=== PATIENT | female | born 1990 | race Caucasian/White ===

== ENCOUNTER 2016-08-21 16:14 | Inpatient (IN) | payer OTHER ==
[~2016-08-21] VITALS: Ht 160 cm; Wt 68.0 kg
[2016-08-21 17:57] LABS: AMPHETAMINE QUAL UR NONE DETECTED (NEG <=1000)
[2016-08-21 19:50] LABS: BASOPHIL % 0.5 % (0-2); PLATELET COUNT 316 x10^3mcL (130-400); RED CELL DISTRIBUTION WIDTH 14.1 % (11.5-14.5)
[2016-08-21 19:55] LABS: CALCIUM 8.2 mg/dL (8.5-10.1); CARBON DIOXIDE 27.6 mmol/L (21-32); CHLORIDE SERUM 106 mmol/L (98-107); CREATININE SERUM 0.7 mg/dL (0.6-1.0); GFR1 > 60 mL/min; GLUCOSE SERUM 93 mg/dL (74-106); POTASSIUM SERUM 3.8 mmol/L (3.5-5.1); SODIUM SERUM 140 mmol/L (136-145)
[2016-08-21 19:59] LABS: ALKALINE PHOSPHATASE 45 U/L (46-116); ALT/SGPT 9 U/L (14-59); AST/SGOT 19 U/L (15-37); BILIRUBIN TOTAL 0.19 mg/dL (0.20-1.00)
[2016-08-21 20:00] LABS: ALBUMIN 3.2 g/dL (3.4-5.0); TOTAL PROTEIN, SERUM 6.1 g/dL (6.4-8.2)
[2016-08-22 14:21] LABS: BASOPHIL % 0.6 % (0-2); PLATELET COUNT 288 x10^3mcL (130-400); RED CELL DISTRIBUTION WIDTH 14.1 % (11.5-14.5)
[2016-08-22 14:46] LABS: CHOLESTEROL/HDL RATIO 3.5
[2016-08-22 14:52] LABS: T3 TOTAL 0.66 ng/mL
[2016-08-22 14:54] VITALS: BP 105/59
[2016-08-22 15:30] LABS: FREE T4 0.97 ng/dL (0.76-1.46); FREE THYROXINE INDEX 1.8 ug/dL (1.4-4.5); T4(THYROXINE) 4.9 ug/dL (4.7-13.3)
[2016-08-23 00:30] VITALS: BP 88/47
[2016-08-23 17:55] VITALS: BP 95/56
[2016-08-24 11:00] VITALS: BP 99/35
[2016-08-24 15:13] LABS: BASOPHIL % 0.2 % (0-2); PLATELET COUNT 311 x10^3mcL (130-400); RED CELL DISTRIBUTION WIDTH 14.3 % (11.5-14.5)
[2016-08-24 15:29] LABS: CALCIUM 8.6 mg/dL (8.5-10.1); CARBON DIOXIDE 30.9 mmol/L (21-32); CHLORIDE SERUM 105 mmol/L (98-107); CREATININE SERUM 0.8 mg/dL (0.6-1.0); GFR1 > 60 mL/min; GLUCOSE SERUM 117 mg/dL (74-106); MAGNESIUM 1.8 mg/dL (1.8-2.4); POTASSIUM SERUM 3.9 mmol/L (3.5-5.1); SODIUM SERUM 139 mmol/L (136-145)
[2016-08-25 09:00] VITALS: BP 141/59
[2016-08-25 10:03] VITALS: Ht 160 cm; Wt 68.0 kg
[2016-08-25 12:20] VITALS: BP 92/73
[2016-08-25 16:30] VITALS: BP 96/61
[2016-08-27] MEDS ORDERED: HAL5I IM (13:43)
[2016-08-27] MEDS ORDERED: QUETIAPINE FUMA25 M1 PO (13:43)
[2016-08-27 14:54] VITALS: BP 101/59
== END 2016-08-27 15:30 | DRG 775 ==
LOC: ED 16:14 → DU 08-22 13:08 → IC 08-22 13:08 → DU 08-22 14:25 → IC 08-24 14:35
PROVIDERS: Emergency Medicine; ADMIT Family Medicine
DX: F10.239 Alcohol dependence with withdrawal, unspecified (principal); N17.0 Acute kidney failure with tubular necrosis; I50.43 Acute on chronic combined systolic (congestive) and diastolic (congestive) heart failure; E44.0 Moderate protein-calorie malnutrition; R41.0 Disorientation, unspecified; M62.82 Rhabdomyolysis; Z68.26 Body mass index [BMI] 26.0-26.9, adult; Z91.19 Patient's noncompliance with other medical treatment and regimen; F19.10 Other psychoactive substance abuse, uncomplicated; Y90.9 Presence of alcohol in blood, level not specified
CPT/HCPCS: 83880; 84439; G0480; J1200; J1630; J2060; J2250; J7030; Q0163